=== PATIENT | female | born 1980 | race African-American/Black ===

== ENCOUNTER 2016-05-05 15:58 | Emergency (ER) | payer OTHER ==
[~2016-05-05] VITALS: Ht 180.3 cm; Wt 120.7 kg
[~2016-05-05 15:58] MED LIST: CYCLOBENZAPRINE10 M3 PO; FIORICET 325 MG1 TAB PO; HYDRODIURIL 2525 MG PO; IBUPROFEN800 MG PO; LOSARTAN-HCTZ1 EAC2 PO; NAPROSYN500 M1 PO; NIFEDIPINE ER90 MG PO; NIFEDIPINE60 MG PO; TYLENOL WITH C1 EACH PO
--- NOTE | 2016-05-05 17:27 | ED HEADACHE COMPLAINT ---
See Addendum History of Present Illness General Chief Complaint: Headache Stated Complaint: HEADACHE X 1DAY Source: patient, old records Exam Limitations: no limitations Vital Signs & Intake/Output Vital Signs & Intake/Output Vital Signs Date Time Temp Pulse Resp B/P Pulse O2 O2 Flow FiO2 Ox Delivery Rate 05/05 1901 97.9 82 18 156/84 97 Room Air 05/05 1613 97.2 66 20 145/80 96 Room Air Allergies Coded Allergies: NO KNOWN ALLERGIES (11/02/13) Reconcile Medications Losartan/Hydrochlorothiazide (Losartan-Hctz 100-25 MG Tab) 100 MG-25 MG TABLET 1 TAB PO DAILY HEART (Reported) Tylenol With Codeine (Tylenol With Codeine #3 Tablet) 300 MG-30 MG TABLET 1 TAB PO TID PRN PAIN Triage Note: RECEIVED 35 YO FEMALE C/O HEADACHE STARTED YESTERDAY MORNING, WRAPS AROUND WHOLE HEAD, NO PHOTOPHOBIA. MILD NAUSEA. PT HAS BEEN TAKING IBUPROFEN FOR PAIN WITH NO RELIEF OF PAIN. MILD INTERMITTENT DIZZINESS Triage Nurses Notes Reviewed? yes : No Patient currently breastfeeds: No HPI: This si a 35 yo female with PMH of htn who came with CC of headache. She stated that it started yesterday around 8am and gradually worsened. She took 200mg of ibuprufen x3 to no benefit. The first time was in the AM, the second time was around 2 am when her headache work her up from sleep adn the third time was prior to coming to the ED. Pt states that the headache has gradually worsened over the past 24 hrs. Currently it is a 9/10 band like pain in a halo shape around her head. She denies any aura, nausea, vomiting, change in vision, hemiparesis, slurring of speech or weakness. She does not endorse any relieving or exacerbating factors. She only endorses samuel and palpitations. Pt states that she is compliant with her anti-hypertensive regimen. Her headaches are sometimes associated with elevated BP but she states that this time it feels different. She has had previous ED visits for HTN and BP in 2015 and 2016. Past History Travel History Traveled to [place] past 21 day No Medical History Any Pertinent Medical History? see below for history Neurological: NONE EENT: NONE Cardiovascular: hypertension Respiratory: NONE Gastrointestinal: NONE Hepatic: NONE Renal: NONE Musculoskeletal: NONE Psychiatric: NONE Endocrine: NONE Blood Disorders: NONE Cancer(s): NONE Surgical History Surgical History: non-contributory Psychosocial History What is your primary language B[place] Tobacco Use: Never used Family History Hx Contributory? No Review of Systems Review of Systems Constitutional: Denies: chills, diaphoresis, fever, malaise, weakness. Eyes: Denies: blindness, blurred vision. Ears, Nose, Throat, Mouth: Reports: no symptoms. Respiratory: Reports: no symptoms. Cardiovascular: Reports: palpitations. Denies: chest pain. Gastrointestinal/Abdominal: Reports: no symptoms. Genitourinary: Reports: no symptoms. Musculoskeletal: Reports: no symptoms. Skin: Reports: no symptoms. Neurological/Psychological: Reports: headache. Denies: anxiety, ataxia, cognitive dysfunction, confusion, depressed, numbness, paresthesia, tingling, tremors, tonic-clonic seizures. Physical Exam Physical Exam General Appearance: well developed/nourished, no apparent distress, alert, awake Head: atraumatic, normal appearance Eyes: Bilateral: normal appearance, PERRL, EOMI. Ears, Nose, Throat: normal pharynx Neck: normal inspection, supple, full range of motion Respiratory: normal breath sounds, chest non-tender Cardiovascular: regular rate/rhythm Gastrointestinal: soft, non-tender Back: normal inspection Psychiatric: awake, alert, oriented x 3 Cranial Nerves: normal hearing, normal speech, PERRL Core Measures Severe Sepsis Present: No Septic Shock Present: No Progress Differential Diagnosis: meningitis, migraine SAMUEL, musculoskeletal pain, tension SAMUEL Plan of Care: Current Medications Sig/Dylan Start time Last Medication Dose Stop Time Status Admin Ketorolac 30 MG ONCE ONE 05/05 1714 UNVr Tromethamine 05/06 1715 (Toradol) Lorazepam 1 MG ONCE ONE 05/05 1714 UNVr (Ativan) 05/05 171 Departure Departure Disposition: HOME OR SELF CARE Condition: Stable Clinical Impression Primary Impression: Headache Referrals: CHIRAG PANCHAL APRN (PCP/Family) Additional Instructions: If your conditions does not improve or you start to notice slurring of speech, or unilateral weakenss then return to ED. Inform your PCP about your ED visit. Departure Forms: Customer Survey General Discharge Information
[2016-05-05 19:01] VITALS: BP 156/84
== END 2016-05-05 19:02 ==
LOC: ERH 15:58
DX: R51 Headache (principal)
CPT/HCPCS: 96372; J1885